=== PATIENT | female | born 1960 | race Caucasian/White ===

== ENCOUNTER 2024-01-16 06:25 | Day surgery (SDC) | payer MEDICARE, BC ==
[~2024-01-16 06:25] MED LIST: Sodium Chloride 0.9% 10 ML Syringe FLUSH PRN; Sodium Chloride 0.9% 10 ML Syringe FLUSH SCH
[2024-01-16] MEDS: Lactated Ringers 1,000 ML IV SCH (06:45)
[2024-01-16] MEDS ORDERED: Ondansetron 4 MG/2 ML SDV IVPUSH PRN (07:01)
[2024-01-16] MEDS ORDERED: fentaNYL 100 MCG/2 ML SDV IVPUSH PRN (07:01)
[2024-01-16] MEDS ORDERED: HYDROmorphone 0.5 MG/0.5 ML Syringe IVPUSH PRN (07:01)
[2024-01-16] MEDS ORDERED: EPINEPHrine 1 MG/ML SDV ONE (07:18)
[2024-01-16] MEDS ORDERED: Ropivacaine 0.5% 5 MG/ML 30 ML SDV ONE (07:19)
[2024-01-16] MEDS ORDERED: Lidocaine 1% 5 ML VIAL ONE (07:20)
[2024-01-16] MEDS ORDERED: Propofol 200 MG/20 ML SDV ONE (07:20)
[2024-01-16] MEDS ORDERED: Midazolam 1 MG/ML 2 ML SDV ONE (07:21)
[2024-01-16] MEDS ORDERED: fentaNYL 100 MCG/2 ML SDV ONE (07:21)
[2024-01-16] MEDS ORDERED: Dexamethasone 4 MG/ML 5 ML MDV ONE (07:21)
[2024-01-16] MEDS ORDERED: ceFAZolin 2 GM Vial ONE (07:22)
[2024-01-16] MEDS: Pregabalin 25 MG Cap PO ONE (07:28)
[2024-01-16] MEDS: oxyCODONE ER 10 MG TAB.ER PO ONE (07:28)
[2024-01-16] MEDS: Acetaminophen 325 MG Tab PO ONE (07:29)
[2024-01-16] MEDS ORDERED: Lactated Ringers 1,000 ML ONE (07:57)
[2024-01-16] MEDS ORDERED: ePHEDrine 50 MG/ML SDV ONE (08:00)
[2024-01-16] MEDS: Morphine 8 MG, EPINEPHrine 0.3 MG, Cefuroxime 750 MG, Ketorolac 30 MG, Sodium Chloride ... PRN (09:01)
[2024-01-16] MEDS ORDERED: Ondansetron 4 MG/2 ML SDV ONE (09:03)
[2024-01-16] MEDS ORDERED: Ketorolac 15 MG/ML SDV ONE (09:05)
[2024-01-16] MEDS: Vancomycin 1 GM SDV ONE (09:07)
[2024-01-16] MEDS: Tranexamic Acid 1,000 MG/10 ML Vial ONE (09:07)
[2024-01-16] MEDS: oxyCODONE 5 MG Tab PO PRN (10:38)
== END 2024-01-16 12:50 | disposition home or self-care (01) ==
LOC: JD.SDS 06:25
PROVIDERS: ATTEND Orthopaedic Surgery
DX: M17.12 Unilateral primary osteoarthritis, left knee (principal); K21.9 Gastro-esophageal reflux disease without esophagitis; N95.1 Menopausal and female climacteric states; K75.9 Inflammatory liver disease, unspecified; Z87.891 Personal history of nicotine dependence; Z79.82 Long term (current) use of aspirin; Z79.899 Other long term (current) drug therapy; Z91.048 Other nonmedicinal substance allergy status
CPT/HCPCS: 0055T; 27447; 64447; 73560; 97110; 97161; A9270; C1713; C1776; J0171; J0690; J0697; J1100; J1885; J2250; J2270; J2405; J2704; J2795; J3010; J3370; J7120; 01402; J3490

== ENCOUNTER 2024-03-17 07:00 | Day surgery (SDC) | payer MEDICARE, BC ==
[~2024-03-17 07:00] MED LIST changes: +Lactated Ringers 1,000 ML IV SCH
[2024-03-17] MEDS: Lactated Ringers 1,000 ML IV SCH (07:00)
[2024-03-17] MEDS ORDERED: fentaNYL 100 MCG/2 ML SDV ONE (07:25)
[2024-03-17] MEDS ORDERED: dexmedeTOMIDine HCl 200 MCG/2 ML SDV ONE (07:29)
[2024-03-17] MEDS ORDERED: Lidocaine 1% with EPINEPHrine 1:100,000 20 ML MDV ONE (07:30)
[2024-03-17] MEDS ORDERED: Ropivacaine 0.5% 5 MG/ML 30 ML SDV ONE (07:30)
[2024-03-17] MEDS ORDERED: Dexamethasone 4 MG/ML 5 ML MDV ONE (07:31)
[2024-03-17] MEDS ORDERED: Propofol 200 MG/20 ML SDV ONE (07:32)
[2024-03-17] MEDS ORDERED: Lidocaine 1% 5 ML VIAL ONE (07:32)
[2024-03-17] MEDS ORDERED: Sodium Chloride 0.9% 100 ML ONE (07:33)
[2024-03-17] MEDS ORDERED: ePHEDrine 50 MG/ML SDV ONE (08:23)
[2024-03-17] MEDS: oxyCODONE 5 MG Tab PO ONE (09:00)
== END 2024-03-17 09:15 | disposition home or self-care (01) ==
LOC: JD.SDS 07:00
PROVIDERS: ATTEND Orthopaedic Surgery
DX: M17.12 Unilateral primary osteoarthritis, left knee (principal); K21.9 Gastro-esophageal reflux disease without esophagitis; E78.00 Pure hypercholesterolemia, unspecified; Z79.899 Other long term (current) drug therapy
CPT/HCPCS: 01380; 64447; A9270-GY; J1100; J2704; J2795; J3010; J3490; J7120